=== PATIENT | male | born 1990 | race Caucasian/White ===

== ENCOUNTER 2018-05-10 09:30 | Day surgery (SDC) | payer BC ==
[~2018-05-10 09:30] MED LIST: Lactated Ringers 1,000 ML IV SCH; Lidocaine 2% 5 ML SDV ONE; Midazolam 1 MG/ML 2 ML SDV ONE; Propofol 200 MG/20 ML SDV ONE; Sodium Chloride 0.9% 10 ML Syringe FLUSH PRN; Sodium Chloride 0.9% 2.5 ML Syringe FLUSH PRN; fentaNYL 100 MCG/2 ML SDV ONE
--- NOTE | 2018-05-10 11:19 | PCM.PREANE ---
Preanesthetic Assessment - Anesthesia/Transfusion/Family Hx Anesthesia History: Prior Anesthesia Without Reaction Family History of Anesthesia Reaction: No Transfusion History: No Prior Transfusion(s) Intubation History: Unknown - Review of Systems General: No Symptoms Pulmonary: No Symptoms Cardiovascular: No Symptoms Gastrointestinal: Difficulty Swallowing Neurological: No Symptoms Other: Reports: None - Physical Assessment Height: 1.85 m Weight: 94.347 kg ASA Class: 2 Mental Status: Alert & Oriented x3 Airway Class: Mallampati = 2 Dentition: Reports: Normal Dentition Thyro-Mental Finger Breadths: 3 Mouth Opening Finger Breadths: 3 ROM/Head Extension: Full Lungs: Clear to Auscultation, Normal Respiratory Effort Cardiovascular: Regular Rate, Regular Rhythm - Allergies Allergies/Adverse Reactions: Allergies Allergy/AdvReac Type Severity Reaction Status Date / Time No Known Allergies Allergy Verified 05/06/18 11:59 - Blood Blood Available: No - Anesthesia Plan Pre-Op Medication Ordered: None - Acknowledgements Anesthesia Type Planned: MAC Pt an Appropriate Candidate for the Planned Anesthesia: Yes Alternatives and Risks of Anesthesia Discussed w Pt/Guardian: Yes Pt/Guardian Understands and Agrees with Anesthesia Plan: Yes PreAnesthesia Questionnaire Gastrointestinal History: Reports: Other (See Below) Other Gastrointestinal History: dysphagia - Past Surgical History Head Surgeries/Procedures: Reports: None GI Surgical History: Reports: Hernia, Inguinal (bilateral) Other GI Surgeries/Procedures: hx rylee inguinal hernia repair - SUBSTANCE USE Smoking Status *Q: Never Smoker Tobacco Use Within Last Twelve Months: Snuff/Dip Recreational Drug Use History: No - HOME MEDS Home Medications: Home Meds . [No Known Home Meds] 05/06/18 [History] - CURRENT (IN HOUSE) MEDS Current Meds: Current Medications Lactated Ringer's (Ringers, Lactated) 1,000 mls @ 125 mls/hr IV ASDIRECTED [place] Sodium Chloride (Saline Flush) 10 ml FLUSH ASDIRECTED PRN PRN Reason: Keep Vein Open Sodium Chloride (Saline Flush) 2.5 ml FLUSH ASDIRECTED PRN PRN Reason: Keep Vein Open Discontinued Medications Fentanyl (Sublimaze) Confirm Administered Dose 100 mcg .ROUTE .STK-MED ONE Stop: 05/10/18 07:27 Lidocaine (Xylocaine-Mpf 2%) Confirm Administered Dose 5 ml .ROUTE .STK-MED ONE Stop: 05/10/18 07:27 Midazolam HCl (Versed 1 Mg/Ml) Confirm Administered Dose 2 mg .ROUTE .STK-MED ONE Stop: 05/10/18 07:27 Propofol (Diprivan 20 Ml) Confirm Administered Dose 400 mg .ROUTE .STK-MED ONE Stop: 05/10/18 07:27
--- NOTE | 2018-05-10 11:47 | PCM.OPNOTE ---
- General Post-Op/Procedure Note Date of Surgery/Procedure: 05/10/18 Operative Procedure(s): Diagnostic EGD Findings: Esophageal stricture, hiatal hernia, GERD Pre Op Diagnosis: Hiatal hernia, GERD, esophageal stricture Post-Op Diagnosis: same, esophagitis Anesthesia Technique: MAC Primary Surgeon: Gosia Rose Condition: Good
--- NOTE | 2018-05-10 11:55 | PCM.POSTAN ---
POST ANESTHESIA ASSESSMENT - MENTAL STATUS Mental Status: Alert, Oriented - RESPIRATORY Respiratory Status: Respiratory Rate WNL - CARDIOVASCULAR CV Status: Pulse Rate WNL - GASTROINTESTINAL GI Status: No Symptoms - PAIN Pain Score: 0 - POST OP HYDRATION Hydration Status: Adequate & Stable - OBSERVATIONS Free Text/Narrative:: no anesthesia problems
--- NOTE | 2018-05-10 12:20 | PCM48HPAN ---
Post Anesthesia Note - EVALUATION WITHIN 48HRS OF ANESTHETIC Vital Signs in Normal Range: Yes Patient Participated in Evaluation: Yes Respiratory Function Stable: Yes Airway Patent: Yes Cardiovascular Function Stable: Yes Hydration Status Stable: Yes Pain Control Satisfactory: Yes Nausea and Vomiting Control Satisfactory: Yes Mental Status Recovered: Yes Resp Rate: 12 - COMMENTS/OBSERVATIONS Free Text/Narrative:: no anesthesia problems
--- NOTE | 2018-05-11 12:56 | OR ---
SURGEON: USHA PAYNE MD DATE OF PROCEDURE: 05/10/2018 PREOPERATIVE DIAGNOSES: 1. Hiatal hernia. 2. Esophageal stricture. 3. Gastroesophageal reflux disease. POSTOPERATIVE DIAGNOSES: 1. Severe esophagitis. 2. Esophageal stricture. PROCEDURE PERFORMED: Diagnostic EGD. ANESTHESIA: MAC EXTENT OF EXAM: To the distal esophagus. INSTRUMENT USED: Olympus endoscope. PREPARATION: Good. LIMITATIONS: Severe inflammation of the distal esophagus. INDICATIONS: The patient is a 27-year-old male, who presented to clinic with complaints of dysphagia. A preoperative esophagram was performed that showed a small hiatal hernia associated with a moderate esophageal stricture as well as gastric reflux. I discussed these findings with the patient. I explained the need for diagnostic EGD, and we discussed the possibility of esophageal dilation. I explained the procedure, expected perioperative course, and risks including bleeding, infection, or the risk of perforation especially with dilation. The patient verbalized understanding and wishes to proceed. PROCEDURE IN DETAIL: The patient was brought to the endoscopy suite and placed in a beach chair position. A time-out was completed verifying the patient's name, age, date of , allergies, and procedure to be performed. Monitored anesthesia care was induced, and a bite block was placed to the patient's mouth. Continuous oxygen was provided via nasal cannula throughout the procedure. After adequate sedation was achieved, a well lubricated endoscope was placed in the patient's mouth and advanced under direct visualization down the esophagus. I was able to reach the GE junction; however, an esophageal stricture was noted at this area, and I was unable to pass my scope any further. The patient had evidence of severe esophagitis. Biopsies were taken of the distal esophagus and sent to pathology labeled as esophageal biopsy. The patient had brisk bleeding after my 2 superficial biopsies. These areas were monitored, and the bleeding stopped without any further intervention. Given the friability of the distal esophagus, the decision was made to not proceed with dilation. The remainder of the esophagus appeared normal. The scope was removed, and the procedure terminated. The patient was transferred to the PACU in stable condition. ENDOSCOPIC DIAGNOSES: 1. Severe esophagitis. 2. Esophageal stricture. RECOMMENDATIONS: I placed the patient on daily PPI therapy. Hopefully with acid reducing medications, I will be able to heal his esophagitis, and in the near future, we can proceed with a repeat EGD and dilation. I will follow up with the patient in clinic in 2 weeks. SHERIF GARCÍA /[id number]
== END 2018-05-10 12:25 | disposition home or self-care (01) ==
LOC: MW.SDS 09:30
PROVIDERS: ATTEND Surgery
DX: K22.2 Esophageal obstruction (principal); K20.9 Esophagitis, unspecified; K21.9 Gastro-esophageal reflux disease without esophagitis; K44.9 Diaphragmatic hernia without obstruction or gangrene; F17.220 Nicotine dependence, chewing tobacco, uncomplicated
CPT/HCPCS: 43239; J2250; J3010; J7120; J2704